=== PATIENT | male | born 1955 | race Caucasian/White ===

== ENCOUNTER 2025-03-13 08:15 | Inpatient (IN) ==
[2025-03-13] MEDS ORDERED: GADOBENATE DIMEGLUMINE 20 ML/VIAL IV ONE (08:16)
[2025-03-13] MEDS ORDERED: IOPAMIDOL 100 ML BOTTLE IV ONE (08:16)
[2025-03-13] MEDS: ACETAMINOPHEN 325 MG TABLET PO ONE (10:19)
[2025-03-13] MEDS: KETOROLAC 15 MG/ML VIAL IV ONE (10:22)
[2025-03-13] MEDS: LIDOCAINE 4% TOP PATCH TOPICAL ONE (10:22)
[2025-03-13 11:05] LABS: Anion Gap 10.0 (8.0-16.0); Blood Urea Nitrogen 14 mg/dL (8-23); Calcium 8.7 mg/dL (8.6-10.4); Carbon Dioxide 23 mmol/L (22-30); Chloride 101 mmol/L (96-108); Glucose 97 mg/dL (70-105); Potassium 3.6 mmol/L (3.3-5.1); Sodium 134 mmol/L (133-145)
[2025-03-13 11:10] LABS: Bilirubin,Urine Negative (Negative); Color,Urine Yellow; Glucose,Urine (UA) >=1000 mg/dL (Negative); Ketones,Urine Negative (Negative); Leukocyte Esterase,Urine Negative /uL (Negative); Mucus,Urine Few /hpf; PH,Urine 5.5 (5.0-9.0); Protein,Urine Negative (Negative); Specific Gravity,Urine <= 1.005 (1.000-1.035); Urobilinogen,Urine Normal
[2025-03-13 11:30] LABS: Basophils # (Auto) 0.04 K/mcL (0.00-0.30); Basophils % (Auto) 0.4 % (0.0-2.0); Eosinophils # (Auto) 0.12 K/mcL (0.00-0.70); Eosinophils % (Auto) 1.2 % (0.0-7.0); Hematocrit 40.6 % (40.1-51.0); Hemoglobin 12.9 g/dL (13.7-17.5); Lymphocytes # (Auto) 0.65 K/mcL (1.50-4.80); Lymphocytes % (Auto) 6.6 % (15.5-49.0); Mean Corpuscular HGB Conc 31.8 g/dL (31.0-36.0); Monocytes # (Auto) 1.05 K/mcL (0.10-0.90); Monocytes % (Auto) 10.7 % (1.0-12.0); Neutrophils % (Auto) 80.7 % (38.0-78.0); Platelet Count 120 K/mcL (140-440); RBC 4.20 M/mcL (4.63-6.08); WBC 9.9 K/mcL (4.5-11.0)
[2025-03-13] MEDS: LORazepam 2 MG/ML VIAL IV ONE (11:33)
[2025-03-13] MEDS: CLOPIDOGREL 75 MG TABLET PO ONE (13:12)
[2025-03-13] MEDS: ASPIRIN 81 MG TAB.CHEW CHEWED ONE (13:15)
[2025-03-13] MEDS: CLOPIDOGREL 300 MG TABLET PO ONE (13:16)
[2025-03-13] MEDS: ONDANSETRON 4 MG/2 ML VIAL IV ONE (14:22)
[2025-03-13 16:57] LABS: ALT/SGPT 39 U/L (<40); AST/SGOT 75 U/L (<40); Albumin 2.9 gm/dL (3.2-5.2); Alkaline Phosphatase 96 U/L (39-117); Bilirubin,Direct 1.0 mg/dL (<0.3); Bilirubin,Total 1.8 mg/dL (0.1-1.0); Globulin 4.1 gm/dL (2.2-3.7)
[2025-03-13] MEDS ORDERED: POTASSIUM CHLORIDE 40 MEQ in DEXTROSE 5% IN WATER 500 ML IV PRN (17:40)
[2025-03-13] MEDS ORDERED: DEXTROSE 50% 50 ML VIAL IV PRN (17:40)
[2025-03-13] MEDS ORDERED: MAGNESIUM SULFATE 2 GM/50 ML BAG IV PRN (17:40)
[2025-03-13] MEDS ORDERED: DEXTROSE 31 GM ORAL.SUSP PO PRN (17:40)
[2025-03-13] MEDS ORDERED: POTASSIUM CHLORIDE 20 MEQ TABLET PO PRN ×2 (17:40)
[2025-03-13] MEDS ORDERED: POLYETHYLENE GLYCOL 3350 17 GM PACKET PO PRN (17:40)
[2025-03-13] MEDS ORDERED: ONDANSETRON 4 MG/2 ML VIAL IV PRN (17:40)
[2025-03-13] MEDS ORDERED: SENNOSIDES 1 TABLET PO PRN (17:40)
[2025-03-13] MEDS ORDERED: IPRATROPIUM/ALBUTEROL 3 ML AMPUL.NEB NEB PRN (17:40)
[2025-03-13] MEDS: METOCLOPRAMIDE 10 MG/2 ML VIAL IV PRN (17:47)
[2025-03-13 18:09] LABS: HDL Cholesterol 12 mg/dL (>40); LDL Cholesterol,Calculated 41 mg/dL (<100); Triglycerides 104 mg/dL (<150)
[2025-03-13] MEDS: METOCLOPRAMIDE 10 MG/2 ML VIAL ONE (18:22)
[2025-03-13] MEDS: 0.9 % SODIUM CHLORIDE 1,000 ML IV SCH (18:26)
[2025-03-13] MEDS: INSULIN LISPRO 1 UNIT/0.01 ML UNIT SQ SCH (18:49)
[2025-03-13] MEDS: SUCRALFATE 1 GM/10 ML ORAL.SUSP PO SCH (18:50)
[2025-03-13] MEDS: PANTOPRAZOLE 40 MG VIAL IV ONE (18:50)
[2025-03-13] MEDS: PANTOPRAZOLE 40 MG VIAL IV SCH (18:51)
[2025-03-13] MEDS: LIDOCAINE 4% TOP PATCH TOPICAL SCH (21:30)
[2025-03-13] MEDS: DOCUSATE SODIUM 100 MG CAPSULE PO SCH (21:31)
[2025-03-13] MEDS: KETOROLAC 15 MG/ML VIAL IV PRN (21:31)
[2025-03-13] MEDS: ATORVASTATIN 40 MG TABLET PO SCH (22:52)
[2025-03-14 07:58] LABS: Estimated Average Glucose(eAG) 123 mg/dL; Hemoglobin A1C 5.9 % Hgb (4.0-6.0)
[2025-03-14] MEDS: PANTOPRAZOLE 40 MG VIAL IV SCH (07:58)
[2025-03-14 07:59] LABS: ALT/SGPT 33 U/L (<40); AST/SGOT 56 U/L (<40); Albumin 2.7 gm/dL (3.2-5.2); Albumin/Globulin Ratio 0.8 (1.0-2.3); Alkaline Phosphatase 74 U/L (39-117); Anion Gap 10.0 (8.0-16.0); Bilirubin,Direct 0.8 mg/dL (<0.3); Bilirubin,Total 1.2 mg/dL (0.1-1.0); Blood Urea Nitrogen 37 mg/dL (8-23); Calcium 8.1 mg/dL (8.6-10.4); Carbon Dioxide 23 mmol/L (22-30); Chloride 106 mmol/L (96-108); Globulin 3.5 gm/dL (2.2-3.7); Glucose 99 mg/dL (70-105); Phosphorous 4.4 mg/dL (2.5-4.5); Potassium 4.6 mmol/L (3.3-5.1); Sodium 139 mmol/L (133-145); Triglycerides 108 mg/dL (<150); Uric Acid 6.7 mg/dL (2.5-8.0)
[2025-03-14 08:07] LABS: Hematocrit 33.5 % (40.1-51.0); Hemoglobin 10.8 g/dL (13.7-17.5)
[2025-03-14] MEDS: 0.9 % SODIUM CHLORIDE 1,000 ML IV ONE (08:41)
[2025-03-14] MEDS ORDERED: ENOXAPARIN 40 MG/0.4 ML SYRINGE SQ SCH (09:00)
[2025-03-14] MEDS ORDERED: ATORVASTATIN 20 MG TABLET PO SCH (09:00)
[2025-03-14] MEDS: DOXAZOSIN 4 MG TABLET PO SCH (10:35)
[2025-03-14] MEDS: CLOPIDOGREL 75 MG TABLET PO SCH (10:35)
[2025-03-14] MEDS: FOLIC ACID 1 MG TABLET PO SCH (14:08)
[2025-03-14] MEDS: THIAMINE 100 MG in 0.9 % SODIUM CHLORIDE 50 ML IV SCH (14:08)
[2025-03-14 15:35] LABS: Hematocrit 33.3 % (40.1-51.0); Hemoglobin 10.6 g/dL (13.7-17.5)
[2025-03-14] MEDS: ATORVASTATIN 40 MG TABLET PO SCH (20:53)
[2025-03-15 04:24] LABS: Hematocrit 30.4 % (40.1-51.0); Hemoglobin 9.8 g/dL (13.7-17.5)
[2025-03-15 04:45] LABS: ALT/SGPT 32 U/L (<40); AST/SGOT 54 U/L (<40); Albumin 2.4 gm/dL (3.2-5.2); Albumin/Globulin Ratio 0.7 (1.0-2.3); Alkaline Phosphatase 67 U/L (39-117); Anion Gap 8.0 (8.0-16.0); Bilirubin,Direct 0.8 mg/dL (<0.3); Bilirubin,Total 1.2 mg/dL (0.1-1.0); Blood Urea Nitrogen 39 mg/dL (8-23); Calcium 8.4 mg/dL (8.6-10.4); Carbon Dioxide 23 mmol/L (22-30); Chloride 109 mmol/L (96-108); Globulin 3.6 gm/dL (2.2-3.7); Glucose 100 mg/dL (70-105); Phosphorous 3.5 mg/dL (2.5-4.5); Potassium 4.0 mmol/L (3.3-5.1); Sodium 140 mmol/L (133-145); Triglycerides 117 mg/dL (<150); Uric Acid 8.2 mg/dL (2.5-8.0)
[2025-03-15] MEDS ORDERED: KETAMINE 50 MG/ML ML IV PRN (07:44)
[2025-03-15 08:55] LABS: INR 1.4 (0.9-1.1); Prothrombin Time 18.2 sec (11.9-14.5)
[2025-03-15] MEDS: DEXTROSE 5%-1/2NS 1,000 ML IV ONE (08:59)
[2025-03-15] MEDS: CARBOXYMETHYLCELLULOSE SODIUM 1 EACH DROPER.GEL OP PRN (08:59)
[2025-03-15] MEDS: PROPOFOL 200 MG/20 ML VIAL IV SCH (12:09)
[2025-03-15] MEDS: MIDAZOLAM 2 MG/2 ML VIAL IV SCH (12:09)
[2025-03-15 16:13] LABS: Hematocrit 31.7 % (40.1-51.0); Hemoglobin 10.1 g/dL (13.7-17.5)
[2025-03-15] MEDS: METHOCARBAMOL 1,000 MG/10 ML VIAL IV PRN (20:27)
[2025-03-16 06:08] LABS: ALT/SGPT 36 U/L (<40); AST/SGOT 67 U/L (<40); Albumin 2.6 gm/dL (3.2-5.2); Albumin/Globulin Ratio 0.7 (1.0-2.3); Alkaline Phosphatase 77 U/L (39-117); Anion Gap 9.0 (8.0-16.0); Bilirubin,Direct 0.9 mg/dL (<0.3); Bilirubin,Total 1.5 mg/dL (0.1-1.0); Blood Urea Nitrogen 24 mg/dL (8-23); Calcium 8.8 mg/dL (8.6-10.4); Carbon Dioxide 22 mmol/L (22-30); Chloride 107 mmol/L (96-108); Globulin 3.7 gm/dL (2.2-3.7); Glucose 129 mg/dL (70-105); Phosphorous 2.9 mg/dL (2.5-4.5); Potassium 4.0 mmol/L (3.3-5.1); Sodium 138 mmol/L (133-145); Triglycerides 110 mg/dL (<150); Uric Acid 7.0 mg/dL (2.5-8.0)
[2025-03-16 08:18] LABS: Basophils # (Auto) 0.03 K/mcL (0.00-0.30); Basophils % (Auto) 0.5 % (0.0-2.0); Eosinophils # (Auto) 0.16 K/mcL (0.00-0.70); Eosinophils % (Auto) 2.5 % (0.0-7.0); Hematocrit 32.0 % (40.1-51.0); Hemoglobin 10.0 g/dL (13.7-17.5); Lymphocytes # (Auto) 0.60 K/mcL (1.50-4.80); Lymphocytes % (Auto) 9.5 % (15.5-49.0); Mean Corpuscular HGB Conc 31.3 g/dL (31.0-36.0); Monocytes # (Auto) 0.69 K/mcL (0.10-0.90); Monocytes % (Auto) 10.9 % (1.0-12.0); Neutrophils % (Auto) 75.7 % (38.0-78.0); Platelet Count 130 K/mcL (140-440); RBC 3.26 M/mcL (4.63-6.08); WBC 6.3 K/mcL (4.5-11.0)
[2025-03-16] MEDS: FUROSEMIDE 40 MG/4 ML VIAL IV ONE (11:25)
[2025-03-16] MEDS: ACETAMINOPHEN 325 MG TABLET PO PRN (17:25)
[2025-03-17 06:11] LABS: Basophils # (Auto) 0.03 K/mcL (0.00-0.30); Basophils % (Auto) 0.4 % (0.0-2.0); Eosinophils # (Auto) 0.22 K/mcL (0.00-0.70); Eosinophils % (Auto) 3.3 % (0.0-7.0); Hematocrit 33.8 % (40.1-51.0); Hemoglobin 10.5 g/dL (13.7-17.5); Lymphocytes # (Auto) 0.90 K/mcL (1.50-4.80); Lymphocytes % (Auto) 13.3 % (15.5-49.0); Mean Corpuscular HGB Conc 31.1 g/dL (31.0-36.0); Monocytes # (Auto) 0.76 K/mcL (0.10-0.90); Monocytes % (Auto) 11.3 % (1.0-12.0); Neutrophils % (Auto) 70.8 % (38.0-78.0); Platelet Count 134 K/mcL (140-440); RBC 3.46 M/mcL (4.63-6.08); WBC 6.8 K/mcL (4.5-11.0)
[2025-03-17 06:29] LABS: ALT/SGPT 37 U/L (<40); AST/SGOT 68 U/L (<40); Albumin 2.7 gm/dL (3.2-5.2); Albumin/Globulin Ratio 0.7 (1.0-2.3); Alkaline Phosphatase 81 U/L (39-117); Anion Gap 10.0 (8.0-16.0); Bilirubin,Direct 1.0 mg/dL (<0.3); Bilirubin,Total 1.6 mg/dL (0.1-1.0); Blood Urea Nitrogen 17 mg/dL (8-23); Calcium 8.8 mg/dL (8.6-10.4); Carbon Dioxide 23 mmol/L (22-30); Chloride 104 mmol/L (96-108); Globulin 4.0 gm/dL (2.2-3.7); Glucose 100 mg/dL (70-105); Phosphorous 3.3 mg/dL (2.5-4.5); Potassium 3.7 mmol/L (3.3-5.1); Sodium 137 mmol/L (133-145); Triglycerides 105 mg/dL (<150); Uric Acid 5.6 mg/dL (2.5-8.0)
[2025-03-17] MEDS: METHOCARBAMOL 750 MG TABLET PO PRN (11:41)
[2025-03-17] MEDS ORDERED: PANTOPRAZOLE 40 MG TABLET PO SCH (17:00)
== END 2025-03-17 13:10 | DRG 64 ==
LOC: ICU 08:15 → ED 08:15 → ICU 17:48
PROVIDERS: ADMIT Internal Medicine; ATTEND Student in an Organized Health Care Education/Training Program